=== PATIENT | male | born 1950 | race Caucasian/White ===

== ENCOUNTER 2017-01-03 09:55 | Outpatient (CLI) | payer MEDICARE, OTHER | END 2017-01-03 09:56 | disposition home or self-care (01) | DX: I25.119 Atherosclerotic heart disease of native coronary artery with unspecified angina pectoris (principal); I10 Essential (primary) hypertension; E78.5 Hyperlipidemia, unspecified; E11.9 Type 2 diabetes mellitus without complications; Z95.5 Presence of coronary angioplasty implant and graft | CPT/HCPCS: 78452; 93017; A9500 ==

== ENCOUNTER 2020-04-15 09:20 | Outpatient (CLI) | payer MEDICARE, OTHER ==
--- NOTE | 2020-04-15 10:59 | Ultrasound Report ---
PROCEDURE: Aorta Screening INDICATIONS: NICOTINE DEPENDENCE TECHNIQUE: Real time scanning was performed of the aorta and iliac arteries, with image documentatio n. COMPARISON: None. FINDINGS: Aorta: Proximal aortic diameter measures 2.6 x 2.5 cm. Mid-aorta measures 1.8 x 1.6 cm. Distal aor tic diameter is 1.5 cm. Iliac arteries: Right common iliac artery measures 1.0 x 1.1 cm. Left common iliac artery measures 1.1 x 1.1 cm. IMPRESSION: No sign of aneurysm, no area of aortic stenosis or dissection is suspected. Reviewed by: Curtis Liang MD on 04/15/2020 10:57 AM PDT Approved by: Curtis Liang MD on 04/15/2020 10:57 AM PDT Station ID: [id number]
== END 2020-04-15 09:21 | disposition home or self-care (01) ==
LOC: DI 09:20
PROVIDERS: ATTEND Family Medicine
DX: F17.211 Nicotine dependence, cigarettes, in remission (principal)
CPT/HCPCS: 76706

== ENCOUNTER 2021-10-11 08:00 | Outpatient (CLI) | payer MEDICARE, OTHER | END 2021-10-11 23:59 | LOC: LAB.N 08:00 | PROVIDERS: ATTEND Family Medicine | DX: R05.9 Cough, unspecified (principal); Z20.822 Contact with and (suspected) exposure to COVID-19 | CPT/HCPCS: 87275; 87276; U0004 ==

== ENCOUNTER 2023-04-02 13:36 | Outpatient (CLI) | payer MEDICARE ==
--- NOTE | 2023-04-02 16:16 | XRAY Report ---
PROCEDURE: Lumbar Spine 2 View INDICATIONS: LOW BACK PAIN,CHRONIC TECHNIQUE: 2 views of the lumbar spine were acquired. COMPARISON: None. FINDINGS: Bones: 5 [id number] vertebrae are present. There is normal bony alignment. No vertebral body compression fractures. No suspicious bony lesions. Probable limbus vertebra at L5 versus degenerati ve endplate changes. Multilevel disc space narrowing and degenerative endplate changes are seen throu ghout the lumbar spine. There is multilevel facet hypertrophy. Soft tissues: Overlying bowel gas pattern is normal. No suspicious soft tissue calcifications. IMPRESSION: Moderate multilevel spondylosis. Lumbar spine MRI could be performed for further evaluat ion if indicated clinically. Reviewed by: Lucio Mcfadden MD on 04/02/2023 4:15 PM PDT Approved by: Lucio Mcfadden MD on 04/02/2023 4:15 PM PDT Station ID: [id number]
--- NOTE | 2023-04-02 16:38 | XRAY Report ---
PROCEDURE: Cervical Spine Complete INDICATIONS: NUMBNESS AND TINGLING,LEFT ARM TECHNIQUE: 5 views of the cervical spine acquired. COMPARISON: None. FINDINGS: Bones: No acute fractures or dislocations to the C7 level. Multilevel disc space narrowing and dege nerative endplate changes. There is multilevel uncovertebral joint and facet hypertrophy. Findings re sult in multifocal neural foraminal narrowing that is most prominent at the C3-4 level on the right. The left neural foramina are not well evaluated due to positioning, but there appears to be multileve l narrowing. Soft tissues: No prevertebral soft tissue swelling. IMPRESSION: No acute osseous abnormality. Moderate multilevel spondylosis with multifocal neural for aminal narrowing. Cervical spine MRI could be performed for further evaluation if indicated clinicall y. Reviewed by: Lucio Mcfadden MD on 04/02/2023 4:37 PM PDT Approved by: Lucio Mcfadden MD on 04/02/2023 4:37 PM PDT Station ID: [id number]
== END 2023-04-02 13:37 | disposition home or self-care (01) ==
LOC: DI 13:36
PROVIDERS: ATTEND Physician Assistant
DX: R20.2 Paresthesia of skin (principal); M47.812 Spondylosis without myelopathy or radiculopathy, cervical region; M48.02 Spinal stenosis, cervical region; M47.816 Spondylosis without myelopathy or radiculopathy, lumbar region